=== PATIENT | female | born 1925 | race Caucasian/White ===

== ENCOUNTER → 2017-01-12 | Outpatient (CLI) | payer MEDICARE, BC ==
[~2017-01-12] MED LIST: COUMADIN2.5 MG PO; COUMADIN5 MG PO; DIOVAN160 MG PO; FUROSEMIDE40 MG PO; LANOXIN125 MCG PO; LEVOTHROID50 MCG PO; LOPRESSOR PO; OMEPRAZOLE40 MG
--- NOTE | ~2017-01-12 | US37 ---
[facility] A Service of [facility] & [facility] RADIOLOGY TEXT RESULTS PATIENT: CARLOTA AMBROSIO LOCATION: CNIV : [birth year] UNIT #: [id number] AGE: [address]: Andrez Maria MD SEX: F ORDER DR: [id number] [facility] [address] [place], [place] [address] [id number] O MR#: [id number] Acc #: [id number] NAME: CARLOTA AMBROSIO : 1925 SEX: F STUDY DATE/TIME: 01/12/2017 13:59 UNIT: CNIV ROOM: STUDY DESCRIPTION: US Carotid W/Doppler Bilateral Attending Physician: Andrez Maria M.D. Referring Physician: Andrez Maria M.D. Ordering Physician: Andrez Maria M.D. Primary Care Physician: Ar Rinaldi M.D. MEDICAL IMAGING REPORT This report is preliminary unless electronic signature is present EXAM Carotid Doppler bilateral 01/12/2017 HISTORY Carotid bruit on physical examination 01/05/2017. Blurred vision. Evaluate for carotid stenosis. FINDINGS Vo-scale carotid artery images were obtained as well as Doppler waveform spectral analysis and color flow Doppler imaging. Examination was interpreted according to NASCET criteria. There is elevated peak systolic velocity in the distal right internal carotid artery of 128 cm/sec characteristic of approximate 50-69% diameter reduction. Peak velocity in the right common and external carotid arteries was 36 cm/sec and 66 cm/sec respectively. There is no hemodynamically significant stenosis in the left internal carotid artery which demonstrated peak systolic velocity of 80 cm/sec. Peak velocity in the left common and external carotid arteries is 42 cm/sec and 69 cm/sec respectively. Antegrade blood flow is seen in both vertebral arteries. There is mild calcified plaque bilaterally. IMPRESSION 1. Approximate 50% to 69% diameter reduction involving the distal right internal carotid artery. 2. No hemodynamically significant stenosis in the left internal carotid artery. 3. Antegrade blood flow in both vertebral arteries. Dictated by... Aquilino Whitman M.D. THIS IS AN ELECTRONICALLY VERIFIED REPORT Aquilino Whitman M.D. at 01/13/2017 7:33 AM KRT/to [facility] A Service of [facility] & [facility] RADIOLOGY TEXT RESULTS PATIENT: CARLOTA AMBROSIO LOCATION: CNIV : [birth year] UNIT #: [id number] AGE: [address]: Andrez Maria MD SEX: F ORDER DR: TD: 01/12/2017 21:12 JOB #: [id number] MEDICAL IMAGING REPORT Page 1 of 1 COPY
== END | disposition home or self-care (01) ==
LOC: CNIV 13:34
DX: R09.89 Other specified symptoms and signs involving the circulatory and respiratory systems (principal)
CPT/HCPCS: 93880